=== PATIENT | male | born 1960 | race Caucasian/White ===

== ENCOUNTER 2018-02-19 08:23 | Day surgery (SDC) | payer MEDICAID ==
[2018-02-17 15:11] LABS: CLARITY,URINE CLEAR (Clear); COLOR,URINE STRAW (Yellow); GLUCOSE, URINE NEGATIVE (Neg); KETONES,URINE NEGATIVE (Neg); LEUKOCYTE ESTERASE ,URINE NEGATIVE (Neg); NITRITES, URINE NEGATIVE (Neg); OCCULT BLOOD,URINE NEGATIVE (Neg); PH,URINE 5.5 (4.8-8.0); PROTEIN,URINE 30 mg/dl (Neg); UA COLLECTION TYPE CLN CATCH MIDSTREAM; UROBILINOGEN,URINE 0.2 E.U/dL (0.2-1.0)
[2018-02-17 15:20] LABS: BACTERIA,URINE NONE SEEN /HPF (Neg); HYALINE CASTS 0-3 /LPF (NEGATIVE); MUCUS STRANDS FEW /LPF (Neg); RBC,URINE NONE SEEN /HPF (0-2); SQUAMOUS EPITHELIAL CELL,UR FEW /LPF (FEW); WBC,URINE 0-4 /HPF (0-4)
[2018-02-17 15:24] LABS: BASOPHILS # (AUTO) 0.2 X10'3 (0-0.2); BASOPHILS % (AUTO) 1.4 % (0-1); EOSINOPHILS # (AUTO) 0.1 X10'3 (0-0.9); LYMPHOCYTES # (AUTO) 1.9 X10'3 (1.1-4.8); LYMPHOCYTES % (AUTO) 17.1 % (21-51); MEAN CORPUSCULAR HEMOGLOBIN 33.2 PG (27.0-31.0); MEAN CORPUSCULAR HGB CONC 33.4 % (33.0-36.5); MEAN CORPUSCULAR VOLUME 99.4 FL (78-98); MEAN PLATELET VOLUME 9.4 FL (7.4-10.4); MONOCYTES # (AUTO) 0.6 X10'3 (0-0.9); MONOCYTES % (AUTO) 5.4 % (2-12); NEUTROPHILS % (AUTO) 75.1 % (42-75); PRE OP HEMATOCRIT 41.9 % (42.0-52.0); PRE OP PLATELET COUNT 232 X10'3 (140-440); RED BLOOD COUNT 4.22 X10'6 (4.70-6.10); RED CELL DISTRIBUTION WIDTH 13.5 % (11.5-14.5)
[2018-02-17 15:29] LABS: ALBUMIN 3.8 G/DL (3.4-5.0); ALBUMIN/GLOBULIN RATIO 0.8 (1.1-1.5); ALKALINE PHOSPHATASE 65 IU/L (46-116); BLOOD UREA NITROGEN 15 MG/DL (7-18); BUN/CREATININE RATIO 11.1 (5.4-32.0); CALCIUM 9.7 MG/DL (8.5-10.1); CHLORIDE 97 MMOL/L (99-107); CREATININE 1.35 MG/DL (0.60-1.10); PRE OP ALT 56 U/L (30-65); PRE OP ANION GAP 10 (8-16); PRE OP AST 30 U/L (10-37); PRE OP BILIRUB, TOTAL 0.2 MG/DL (0.0-1.0); PRE OP GLUCOSE 91 MG/DL (70-104); PRE OP POTASSIUM 3.8 MMOL/L (3.4-5.1); PRE OP SODIUM 135 MMOL/L (135-145); TOTAL CARBON DIOXIDE 28.5 MMOL/L (24-32); TOTAL PROTEIN 8.4 G/DL (6.4-8.2); eGFR 54 ML/MIN
[~2018-02-19] VITALS: Ht 180.3 cm; Wt 141.0 kg
[2018-02-19] VITALS (10 sets, daily range): BP systolic 141–173; BP diastolic 92–107
[~2018-02-19 08:23] MED LIST: Cefazolin 2GM/50ML dext iso,osmotic IVPB IV ONE; famotidine 20mg tablet PO ONE; ringers solution, lacted 1,000 ML IV SCH
[2018-02-19] MEDS ORDERED: CHOL10002 PO (08:59)
[2018-02-19] MEDS ORDERED: PSEU-259 PO (08:59)
[2018-02-19] MEDS ORDERED: LISI-600 PO (08:59)
[2018-02-19] MEDS ORDERED: HYDR-3973 PO (08:59)
[2018-02-19] MEDS ORDERED: DIPH25CA83 PO (08:59)
[2018-02-19] MEDS ORDERED: AMLO2.5T PO (08:59)
[2018-02-19] MEDS ORDERED: NAPR-996 PO (08:59)
[2018-02-19] MEDS ORDERED: GABA-532 PO (08:59)
[2018-02-19] MEDS ORDERED: albuterol 2.5 MG/3 ML nebule NEB ONE (09:35)
[2018-02-19] MEDS ORDERED: ringers solution, lacted 1,000 ML IV SCH (11:14)
[2018-02-19] MEDS ORDERED: morphine 4 MG/ML inj SYRINge IV PRN ×2 (11:15)
[2018-02-19] MEDS ORDERED: fentaNYL/PF 50MCG/1 ML 2ML syringe IV PRN ×2 (11:15)
[2018-02-19] MEDS ORDERED: hydrALAZINE 20mg/ml inj. IV PRN (11:15)
[2018-02-19] MEDS ORDERED: labetalol 5mg/ml 20ml inj. IV PRN (11:15)
[2018-02-19] MEDS ORDERED: ondansetron/PF 4mg/2ml inj IV PRN (11:15)
[2018-02-19] MEDS ORDERED: morphine 10mg/ml inj. ONE ×2 (11:42)
[2018-02-19] MEDS ORDERED: midazolam 2 mg/2 ml injection ONE (11:42)
[2018-02-19] MEDS ORDERED: sevoflurane 250ml liquid IH ONE (11:50)
[2018-02-19] MEDS ORDERED: ROPIVAcaine 0.5% (5mg/ml) 30ml vial ONE (12:23)
[2018-02-19] MEDS ORDERED: HYDROcodone/acetaminophen 10/325mg tab PO PRN (14:00)
== END 2018-02-19 14:27 | disposition home or self-care (01) ==
LOC: PAS 08:23
PROVIDERS: ATTEND Surgery
DX: N50.89 Other specified disorders of the male genital organs (principal); I10 Essential (primary) hypertension; G61.0 Guillain-Barre syndrome; F17.210 Nicotine dependence, cigarettes, uncomplicated; M19.90 Unspecified osteoarthritis, unspecified site; Z72.89 Other problems related to lifestyle; Z98.890 Other specified postprocedural states; E66.01 Morbid (severe) obesity due to excess calories; Z68.42 Body mass index [BMI] 45.0-49.9, adult; Z79.899 Other long term (current) drug therapy
CPT/HCPCS: 36415; 54700; 80053; 81001; 85025; 93005; 94640; A6446; A6449; J0690; J2250; J2270; J2795; J7120; A7000; J3490